=== PATIENT | female | born 1960 | race Caucasian/White ===

== ENCOUNTER 2016-11-08 10:49 | Outpatient (CLI) | payer SELFPAY | END 2016-11-08 23:59 | disposition short-term general hospital (02) | DX: I46.9 Cardiac arrest, cause unspecified (principal) | CPT/HCPCS: A0425; A0433 ==

== ENCOUNTER 2016-12-01 16:34 | Outpatient (CLI) | payer SELFPAY | END 2016-12-01 16:35 | disposition EMS.NT | DX: H53.9 Unspecified visual disturbance (principal); V43.52XA Car driver injured in collision with other type car in traffic accident, initial encounter; Y92.413 State road as the place of occurrence of the external cause ==